=== PATIENT | female | born 1960 | race Caucasian/White ===

== ENCOUNTER → 2022-01-19 | Outpatient (CLI) | payer SELFPAY ==
--- NOTE | 2022-01-19 10:55 | STEWCON_ITS ---
Reason For Study: Fatigue, Palpitations; CARDENAS; Chest Pain Stress Results Protocol: Sean Protocol WITH DEFINITY Maximum Predicted HR: 161 bpm Target HR: 137 bpm % Maximum Predicted HR: 91 % DurationHeart Rate Stage (mm:ss) (bpm) BP Comment Baseline 71 128/80No Chest Pain; 4 ML Diluted Definity Sean Protocol Stage I 3:00 125 146/72No Chest Pain Sean Protocol Stage II 3:00 137 174/76No Chest Pain Sean Protocol Stage III 0:45 146 / Light Chest Pain Recovery 93 138/80No Chest Pain Stress Duration: 6:45 mm:ss Maximum Stress HR: 146 bpm METS: 9 Baseline Echocardiogram Findings Stress Echo Wall motion Data Resting WM Intermediate WM Stress WM Resting Wall Motion Wall Motion Stress All segments Normal. All segments Hyperkinetic. Ejection Fraction 55 %. Ejection Fraction 65 %. Stress Results Heart rate response: Technically adequate (Percent predicted maximal heart rate greater 95%) heart rate response Blood pressure response: Normal resting blood pressure-appropriate response Cardiac rhythm: No obvious cardiac dysrhythmias Functional capacity: Good Stopped secondary to: Light chest pain . EKG Data Baseline ECG: Normal sinus rhythm. Peak exercise ECG: Somatic/motion artifact with no obvious ECG changes. Symptoms with Stress The patient noted light chest pain at peak exercise with spontaneous resolution in recovery. ECHO/Stress Test Echo W/Contrast Interpretation Summary Contrast injection performed Negative (adequate) stress echocardiogram Ordering Physician: Anders Perez Referring Physician: Anders Perez Performed By: Katelynn Medina, BLAYNE, RVT
== END | disposition home or self-care (01) ==
PROVIDERS: PCP Physician Assistant; Referring Provider Physician Assistant; Visit Provider Physician Assistant
DX: R00.2 Palpitations (principal)
CPT/HCPCS: 93017; 93350; Q9957; A4216; C8928